=== PATIENT | male | born 1970 | race Caucasian/White ===

== ENCOUNTER 2017-05-18 02:28 | Emergency (ER) | payer OTHER ==
[~2017-05-18] VITALS: Ht 185.4 cm; Wt 117.9 kg
--- OUTSIDE RECORDS SUMMARY | 2017-05-18 02:30 | XMS REPORT | Clinical Summary ---
Author Author [facility] Address Unknown Phone Unavailable Care Team Providers Care Field Secretary Name Role Phone Bam Shaver MD PCP Allergies No Known Allergies Current Medications Prescription Sig. Disp. Refills Start End Date Status Date atenolol (TENORMIN) 50 MG 01/28/20 Active tablet 16 valsartan (DIOVAN) 320 MG 01/28/20 Active tablet 16 albuterol (PROVENTIL HFA) Inhale 2 puffs every 6 18 g 6 02/03/20 90 mcg/actuation (six) hours as needed for 16 17 inhalerIndications: Acute wheezing. bronchitis, unspecified organism Active Problems Problem Noted Date Acute bronchitis 02/03/2016 Last Assessment & Plan: Discussed and counseled patient on the nature of his acute bronchitis. Given that he has had multiple recurrences in the past with complications of sinus infections, failed treatments with Augmentin. I recommend he starts a second line therapy for acute sinusitis/bronchitis. azithromycin 250 by mouth in a Z-Fidel given. Albuterol rescue inhaler when necessary X-ray chest order open for patient if fever or chest pain develop Follow up in office in 3-5 days if symptoms do not improve. Lesion of tongue 02/03/2016 Last Assessment & Plan: Tongue lesion suspicious for malignancy. I have recommended that she sees the ENT in 1-2 weeks if possible. For biopsy and removal of dictation. Counseled patient against use of chewing tobacco as this can have consequences of basal/squamous cell carcinoma Family History Medical History Relation Name Comments Heart disease Father Cancer Maternal Grandfather No Known Problems Mother Diabetes Paternal Grandmother Relation Name Status Comments Father Alive Maternal Grandfather Mother Alive Paternal Grandmother Social History Tobacco Use Types Packs/Day Years Used Date Never Smoker Smokeless Tobacco: Chew Current User Alcohol Use Drinks/Week oz/Week Comments Defer Sex Assigned at Date Recorded Not on file Last Filed Vital Signs Not on file Plan of Treatment Health Maintenance Due Date Last Done Comments INFLUENZA VACCINE 10/13/2016 Results Not on fileafter 05/17/2016 Insurance Payer Benefit Subscriber ID Type Phone Address Plan / Group AETNA AETNA xxxxxxxxxx HMO HMO,POS,EP O, [facility]
[2017-05-18 03:09] LABS: STREPTOCOCCUS GRP A ANTIGEN NEGATIVE (NEGATIVE)
[2017-05-18 03:17] LABS: INFLUENZAE A&B ANTIGEN (RAPID) NEGATIVE (NEGATIVE)
--- NOTE | 2017-05-18 04:03 | Diagnostic Imaging Report ---
EXAMINATION: CHEST 2 VIEWS INDICATION: Cough. COMPARISON: None FINDINGS: TUBES and LINES: None. LUNGS: Lungs are not well inflated. There are bibasilar atelectasis. There is no evidence of pneumonia or pulmonary edema. PLEURA: No pleural effusion or pneumothorax. HEART AND MEDIASTINUM: The cardiomediastinal silhouette is unremarkable. BONES AND SOFT TISSUES: No acute osseous lesion. Soft tissues are unremarkable. UPPER ABDOMEN: No free air under the diaphragm. IMPRESSION: No acute thoracic abnormality. Signed by: Dr. Rao Lopez M.D. on 05/18/2017 4:00 AM
[2017-05-18 04:14] VITALS: BP 152/97
== END 2017-05-18 04:30 | disposition home or self-care (01) ==
LOC: ER 02:28
DX: R05 Cough (principal); J00 Acute nasopharyngitis [common cold]; J02.9 Acute pharyngitis, unspecified
CPT/HCPCS: 71046; 83518; 87070; 87400; 99283